=== PATIENT | female | born 1945 | race Two or more races ===

== ENCOUNTER 2024-06-20 08:27 | Emergency (ER) | payer OTHER ==
[~2024-06-20] VITALS: Ht 167.6 cm; Wt 45.4 kg
[2024-06-20 14:43] VITALS: BP 146/68; TEMP 98.1; O2SAT 96
== END 2024-06-20 14:43 | disposition home or self-care (01) ==
LOC: ER 08:37
DX: R91.1 Solitary pulmonary nodule (principal); I50.9 Heart failure, unspecified; J44.9 Chronic obstructive pulmonary disease, unspecified; Z88.0 Allergy status to penicillin; Z88.5 Allergy status to narcotic agent
CPT/HCPCS: 70450-TC; 71045-TC; 72125-TC; 72170-TC; 73610-TC